=== PATIENT | male | born 1955 | race Caucasian/White ===

== ENCOUNTER 2019-12-29 10:55 | Emergency (ER) | payer OTHER, SELFPAY ==
--- NOTE | 2019-12-29 11:00 | DI.RAD_ITS ---
EXAM: XR THUMB LT INDICATION: Crush injury. COMPARISON: No exams were available for comparison TECHNIQUE: 2D digital imaging was performed. FINDINGS: There is a minimally displaced fracture involving the terminal tuft of the distal phalanx of the left thumb. There is associated soft tissue swelling. No radiopaque foreign bodies are seen in the soft tissues. IMPRESSION: Minimally displaced fracture of the terminal tuft of the distal phalanx of the thumb.
[2019-12-29 11:01] VITALS: BP 181/88; PULSE 98; RESP 16; TEMP 37.1
--- NOTE | 2019-12-29 11:07 | ED.GENADUL_ITS ---
Discharge Plan Disposition Patient Disposition: HOME Condition: Stable Discharge Details Chief Complaint: Laceration Clinical Impression: Open fracture of left thumb Primary Care Provider: Asha,Local ED Provider: Deja Carroll Home Meds and New Rx's Prescriptions: New clindamycin HCl 300 mg capsule 300 mg PO BID 7 Days Qty: 14 RF: 0 Continued FREESTYLE LITE STRIP 1 STRIP strip 1 unit Topical BID 90 Days RF: 3 Discharge Instructions Instructions: Finger Laceration (ED), Thumb Fracture (ED) Additional Instructions: Follow-up with orthopedics. They should call you in 3 to 5 days. Have sutures removed in 7 to 10 days. Return sooner to be seen if any signs of infection such as red streaks, pus or drainage, or fever. Keep clean and covered. Allow to air dry at least 1 to 2 hours a day. Take antibiotics as directed. Referrals: Yong Boyle MD [ [facility] STAFF PHYSICIAN] - Abhi Arndt MD [ [facility] STAFF PHYSICIAN] - Medical Decision Making 64-year-old male presents with crush injury to left thumb. Patient reports 30 minutes prior to arrival was at work when a large metal object crushed his left thumb. He presents with his glove on. He did note bleeding on the scene. He has a subungual hematoma, and a 1 cm laceration to the medial aspect of his left thumb. Circulation sensation movement intact. X-rays obtained and show a distal phalanx fracture. This is considered an open fracture so antibiotics will be given. Digital block performed and anesthesia achieved. Nail trephination performed to relieve pressure under the nail. Laceration repaired with 3 simple interrupted sutures. Home care instructions given. Nonadherent dressing and Coban applied bulky dressing. We will put patient on Ortho call list to follow-up with orthopedics. Patient given clindamycin 150mg p.o. in department and prescription given for clindamyc in. 0.5 mls tetanus IM injection given. HPI General Mode of arrival: ambulatory . Date/Time Provider Initiated Documentation: 12/29/19 10:59 . Limitations to Documentation: no limitations . Information obtained by: patient . HPI Narrative: 64-year-old male presents with left thumb crush injury. Patient states that he got his thumb crushed in between 2 metal objects approximately 30 minutes prior to arrival. He does have a 1 cm laceration noted to the medial aspect of his left thumb. Bleeding is controlled, he does have tenderness and swelling noted. And a subungual hematoma noted. He reports being out of date of his tetanus shot and did not take any medications prior to arrival. Related Data Home Medications Medication Instructions Recorded Confirmed Freestyle Lite Strip 1 unit TOPICAL BID 90 Days 05/15/09 12/29/19 clindamycin HCl 300 mg PO BID 7 Days #14 cap 12/29/19 Previous Rx's Medication Instructions Recorded clindamycin HCl 300 mg PO BID 7 Days #14 cap 12/29/19 Allergies Allergy/AdvReac Type Severity Reaction Status Date / Time Penicillins Allergy Unverified 12/29/19 11:06 General Stated Complaint: Laceration ANIL: 4 Review of Systems Narrative: Constitutional: Negative for weight loss, alert and oriented, well groomed, normal body habitus, appears comfortable. HEENT: Denies trauma, headaches, blurry vision, nasal discharge, sore throat, trouble swallowing. Chest: Denies chest pain, palpitations, irregular rhythm, hypertension. Respiratory: Denies Shortness of breath, cough, hemoptysis. GI: Denies abdominal pain, nausea, vomiting, diarrhea, constipation. : Denies dysuria, hematuria, flank pain, rectal bleeding. Neuro: Denies dizziness, blurry vision, weakness, syncope, headache or facial numbness. Hematologic: Denies easy bruising, intolerance to heat or cold, hair loss. Extremities: left thumb crush injury. [facility], [facility] Social History Smoking/Tobacco Use Status: Never Substance use type: does not use Exam Narrative Exam Narrative: Constitutional: Allert and oriented x3. Appears stated age. Normal body habitus. Head: Normocephalic, no trauma. Eyes: Pupils PERRLA, Red reflex noted, EOM's intact. Eyelids symmetrical withour lesions, discharge, or swelling. ENT: Bilateral TM's WNL, External ear normal to inspection, no mastoid TTP, swelling, or erythema, Nasal turbinates WNL, no nasal discharge. Normal dentition, Posterior pharynx WNL, no exudate. Chest: RRR, Normal S1, S2, distal pulses intact. Resp: Lungs clear to auscultation bilaterally, no wheezes, rales, or rhonchi. Musculoskeletal: Normal gait, 5/5 strength to all four extremities. Skin: Laceration noted to the medial aspect of his left thumb. Subungual hematoma, swelling and tenderness noted to his thumb. Neurologic: Cranial nerves II-XII intact. Alert and oriented x 3. DTR's intact. Hematologic/Lymphatic: No ecchymosis, no lymphadenopathy. Extrem Left upper extremity: hand Details: tenderness Location: of the thumb (Crush injury) Location: at the nailbed and involving the entire digit and laceration (1 cm laceration to the medial aspect of his left thumb) Course Vital Signs Vital signs: Vital Signs Temperature 37.1 C 12/29/19 11:01 Pulse 98 H 12/29/19 11:01 Respiratory Rate 16 12/29/19 11:01 Blood Pressure 181/88 H 12/29/19 11:01 Temperature 37.1 C 12/29/19 11:01 Temperature Source Skin 12/29/19 11:01 Pulse 98 H 12/29/19 11:01 Respiratory Rate 16 12/29/19 11:01 Respiratory Effort Non-Labored 12/29/19 11:01 Blood Pressure 181/88 H 12/29/19 11:01 Blood Pressure Position Sitting 12/29/19 11:01 Pain Level 5 12/29/19 11:01 Procedures Laceration Laceration 1: Site: hand Side (If applicable): left Size (cm): 1 Description: linear Depth: simple, single layer Local Anesthetic: Lidocaine 1% and Bupivicaine 0.5% Amount of anesthesia used (mL): 4 Pre-repair: irrigated extensively Skin layer closed with: nylon Size (cm): 4-0 Number of sutures: 3 Technique: simple, interrupted Nerve Block Nerve Block 1: Time out performed: Yes Local Anesthetic: Lidocaine 1% and Bupivicaine 0.5% Amount of anesthesia used (mL): 4 Side: left Nerve Blocks: digital (Left thumb Ring block) Procedure Successful: Yes Patient Tolerated Procedure: well Complications: none Other Description: Nail trephination performed with electrocautery unit, ooze of blood noted relief of pressure per patient. Patient tolerated well.
[2019-12-29] MEDS: Tetanus & Diphtheria Tox,ADULT 0.5 ML VIAL IM (11:43)
--- NOTE | 2019-12-29 12:05 | NUR.NOTE ---
Assumed care of pt, report from Vaibhav. xray done, bleeding controlled, lac to left thumb with subungal hematoma. Awaiting lac repair.
[2019-12-29] MEDS: Clindamycin 150 MG CAP PO (12:21)
--- NOTE | 2019-12-29 12:30 | NUR.NOTE ---
Deja DOMINGUEZ in to repair lac.
[2019-12-29] MEDS: Lidocaine 1% Multi-Dose 50 ML VIAL IJ (12:45)
[2019-12-29] MEDS: Bupivacaine 0.5% Pres-Free 30 ML VIAL (12:47)
--- NOTE | 2019-12-29 12:48 | NUR.NOTE ---
Deja [employer]OCI[employer] PROFESSOR OF PSYCHOLOGY in to suture left thumb wound, cautery to left subungal hematoma. DSD and coban to left thumb.
[2019-12-29 12:55] VITALS: BP 176/99; PULSE 80; RESP 16; O2SAT 99
--- NOTE | 2019-12-29 13:14 | NUR.NOTE ---
Discharge instructions reviewed with verbal understanding. aware to f/u with ortho and pcp as needed. ambulated to exit with steady gait.
== END 2019-12-29 13:19 | disposition home or self-care (01) ==
PROVIDERS: Emergency Provider Registered Nurse Emergency
DX: S67.02XA Crushing injury of left thumb, initial encounter (principal); S62.522B Displaced fracture of distal phalanx of left thumb, initial encounter for open fracture; W23.1XXA Caught, crushed, jammed, or pinched between stationary objects, initial encounter; Y99.0 Civilian activity done for income or pay
CPT/HCPCS: 11740; 12001; 26750; 90471; 99283; 73140; 99281